=== PATIENT | male | born 1995 | race Caucasian/White ===

== ENCOUNTER → 2019-07-20 14:13 | Outpatient (CLI) | payer OTHER, SELFPAY ==
--- NOTE | 2019-07-20 14:16 | MR_ITS ---
PROCEDURE: MR ANKLE RT WO/W CON CLINICAL INDICATION: peroneal tendon injury Lateral ankle pain following injury, sprain of the anterior talofibular ligament, injury of the peroneal tendon, sprain of deltoid ligament, acute right ankle pain COMPARISON: XR ANKLE RT MIN 3V from 07/07/2019 TECHNIQUE: Routine multiplanar multi echo sequences are performed without and with gadolinium enhancement. FINDINGS: Anterior posterior tibial fibular ligaments are unremarkable. The ATFL shows increased signal intensity laterally consistent with sprain or partial tear. The PT FL appears intact although there is some fluid signal at this region. The extensor tendons and the Achilles tendon has an unremarkable appearance. Small amount of soft tissue edema is present adjacent to the distal fibula and lateral malleolar region. There is some heterogeneous signal intensity present within the peroneal brevis tendon best seen on axial image series 3, image 18 consistent with either a partial tear or sprain. Peroneal longus tendon has an unremarkable appearance. There is a small amount of fluid within the posterior tibialis tendon sheath at the level of the medial malleolus consistent with mild tenosynovitis. Small amount fluid is present along the posterior aspect of the talocalcaneal joint. There is some bone marrow edema within the medial and posterior aspect of the talus fluid is also present along the posterior talofibular ligament region and could reflect a partial tear or sprain. There is a small amount of bone marrow edema within the anterior and distal aspect of the calcaneus and at the anterior and inferior aspect of the talus suggesting bone bruises at these areas. Mild edema is also present within the medial aspect of the cuboid. No enhancing lesions are evident. Fibers of the spring lymph ligament are demonstrated. There is some fluid signal at this area which could be related to sprain or even partial tear IMPRESSION: 1. Partial tear versus sprain of the ATFL. There is some fluid noted at the PT FL area and could be related to sprain or partial tear. 2. Partial tear versus sprain of the perineal brevis tendon just distal to the lateral malleolar tip 3. Sprain versus partial tear of the spring ligament 4. Bone bruises of the calcaneus, talus, and cuboid Dictated by: Shantanu Luu MD 07/21/2019 16:06 Electronically signed by Shantanu Luu MD in [place] 07/21/2019 16:06
--- NOTE | 2019-07-20 14:23 | XR_ITS ---
PROCEDURE: XR ORBIT BILATERAL MIN 4V CLINICAL INDICATION: RULE OUT METAL FOREIGN BODY FOR MRI COMPARISON: No exams were available for comparison FINDINGS: No radiopaque foreign body apparent IMPRESSION: Negative orbits Dictated by: Shantanu Luu MD 07/20/2019 15:04 Electronically signed by Shantanu Luu MD in [place] 07/20/2019 15:04
--- NOTE | 2019-07-20 15:47 | HMH.ITSHM ---
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 []MELOXICAM
== END ==
PROVIDERS: PCP Family Medicine; Visit Provider Podiatrist
DX: S86.301A Unspecified injury of muscle(s) and tendon(s) of peroneal muscle group at lower leg level, right leg, initial encounter (principal); S86.311A Strain of muscle(s) and tendon(s) of peroneal muscle group at lower leg level, right leg, initial encounter; H05.53 Retained (old) foreign body following penetrating wound of bilateral orbits
CPT/HCPCS: 70200; 73723; A9576

== ENCOUNTER → 2019-07-27 13:28 | Outpatient (CLI) | payer OTHER, SELFPAY ==
--- NOTE | 2019-07-27 14:01 | XR_ITS ---
PROCEDURE: XR CHEST 2V CLINICAL HISTORY: TOBACCO USE,ASTHMA Tobacco use COMPARISON: CXR CHEST(2 VIEWS-NOT PORTABLE) from 02/11/2016 FINDINGS: The cardiomediastinal silhouette and pulmonary vascularity are within normal limits. The lungs are clear without infiltrates, suspicious nodules, or pleural effusions. No acute bony abnormalities. IMPRESSION: No acute findings. Dictated by: Shantanu Luu MD 07/27/2019 18:08 Electronically signed by Shantanu Luu MD in [place] 07/27/2019 18:08
[2019-07-27 14:03] LABS: Basophils % 0.4 % (0.1-2.0); Eosinophils # 0.1 K/mm3 (0.0-0.4); Hemoglobin 16.8 g/dL (14.1-18.0); Lymphocytes # 1.6 K/mm3 (0.7-4.5); Mean Corpuscular HGB Conc 34.3 g/dL (31.8-35.4); Mean Corpuscular Hemoglobin 31.9 pg (27.0-31.2); Mean Corpuscular Volume 93.2 fl (80-94); Mean Platelet Volume 8.6 fl (7.4-10.4); Monocytes # 0.3 K/mm3 (0.1-1.0); Monocytes % 5.1 % (1.7-9.3); Neutrophils # 4.6 K/mm3 (1.8-7.8); Neutrophils % 69.5 % (37.0-80.0); Platelet Count 261 K/mm3 (142-424); Red Blood Count 5.26 M/mm3 (4.60-6.20); Red Cell Distribution Width 12.4 % (11.5-17.5); White Blood Count 6.6 K/mm3 (4.8-10.8)
--- NOTE | 2019-07-27 14:17 | ECG_ITS ---
APPROVED REPORT Exam: Resting ECG HR:72 bpm ECG Measurements Heart Rate 72 AXES MD 164 P 46 QRSd 92 QRS 61 QT 368 T 16 QTc 402 <Conclusion> Normal sinus rhythm with sinus arrhythmia Normal ECG Electronically signed by : Delon Abbott, 07/28/2019 12:15:02
[2019-07-27 15:55] LABS: Anion Gap 12.6 mEq/L (5-15); Blood Urea Nitrogen 8 mg/dL (7-18); Calcium 9.2 mg/dL (8.5-10.1); Carbon Dioxide 28 mmol/L (21.0-32.0); Chloride 102 mmol/L (98-107); Creatinine,Serum 1.07 mg/dL (0.70-1.30); Estimated Glomerular Filt Rate 85 ml/min (>60); GFR (African American) 103 ML/MIN (>60); Glucose 84 mg/dL (74-106); Potassium 3.6 mmoL/L (3.5-5.1); Sodium 139 mmol/L (136-145)
[2019-08-10 09:32] LABS: Nicotine 16.4
== END ==
PROVIDERS: PCP Family Medicine; Visit Provider Podiatrist
DX: Z01.818 Encounter for other preprocedural examination (principal); S86.311D Strain of muscle(s) and tendon(s) of peroneal muscle group at lower leg level, right leg, subsequent encounter; S86.301D Unspecified injury of muscle(s) and tendon(s) of peroneal muscle group at lower leg level, right leg, subsequent encounter
CPT/HCPCS: 36415; 71046; 80048; 80323; 85025; 93005

== ENCOUNTER → 2019-09-03 16:28 | Outpatient (CLI) | payer OTHER, SELFPAY ==
--- NOTE | 2019-09-03 16:32 | XR_ITS ---
PROCEDURE: XR FOOT WT BEARING RT 3V CLINICAL INDICATION: postoperative pain COMPARISON: XR FOOT RT MIN 3V from 07/07/2019 FINDINGS: No fracture or dislocation. No lytic or blastic change. There is normal mineralization. The joint spaces are well-preserved. No significant degenerative/arthritic changes. No erosive changes evident. Other findings:2 anchor screws are present at the lateral malleolar region. IMPRESSION: No acute findings. Dictated by: Shantanu Luu MD 09/03/2019 19:19 Electronically signed by Shantanu Luu MD in [place] 09/03/2019 19:19
--- NOTE | 2019-09-03 16:32 | XR_ITS ---
PROCEDURE: XR ANKLE WT BEARING RT MIN 3V CLINICAL INDICATION: postoperative pain COMPARISON: XR ANKLE RT MIN 3V from 07/07/2019 XR ANKLE RT 2V from 08/10/2019 FINDINGS: There are 2 small anchor screws within the distal aspect of the fibula at the lateral malleolar region. No fracture or dislocation. Ankle mortise is preserved. IMPRESSION: Postsurgical change, no acute finding Dictated by: Shantanu Luu MD 09/03/2019 19:18 Electronically signed by Shantanu Luu MD in [place] 09/03/2019 19:18
== END ==
PROVIDERS: PCP Family Medicine; Visit Provider Podiatrist
DX: M25.571 Pain in right ankle and joints of right foot (principal); M79.671 Pain in right foot
CPT/HCPCS: 73610; 73630

== ENCOUNTER → 2019-09-06 11:13 | Outpatient (CLI) | payer OTHER, SELFPAY ==
--- NOTE | 2019-09-06 11:21 | CA_ITS ---
APPROVED REPORT Right Lower Extremity Venous Study for DVT. Angiography Technologist: LUCERO Indications Lower Extremity Pain: Right Risk Factors Trauma Patient tore multiple tendons in the right foot and ankle. States he's having pain and edema near injury sight. Vein Imaging CFV (R): compressive, spontaneous, phasic, augmentation FEM (R): compressive, spontaneous, phasic, augmentation POP (R): compressive, spontaneous, phasic, augmentation PTV (R): Compressible GSV (R): Compressible SSV (R): Compressible Peroneals (R):Compressible GAS (R): Compressible Findings No evidence of DVT or superficial thrombophlebitis in the veins scanned of the right lower extremity. Conclusion No evidence of DVT or superficial thrombophlebitis in the veins scanned of the right lower extremity. Electronically signed by : Shantanu Luu MD 09/07/2019 17:23:46
== END ==
PROVIDERS: PCP Family Medicine; Visit Provider Podiatrist
DX: M79.661 Pain in right lower leg (principal)
CPT/HCPCS: 93971

== ENCOUNTER → 2019-09-24 08:48 | Outpatient (POV) | payer OTHER, SELFPAY ==
[2019-09-24 09:05] VITALS: BP 139/89; PULSE 97; RESP 18; O2SAT 99; BMI 32.3
--- NOTE | 2019-09-24 14:41 | HMH.PMCON ---
Assessment and Plan (1) CRPS type II Current visit: Yes Status: Chronic Qualifiers: Complex regional pain syndrome affected site: lower extremity Laterality: right Qualified Code(s): G57.71 - Causalgia of right lower limb Category: Medical Code(s): G56.40 - Causalgia of unspecified upper limb - Assessment and plan all Dx Assessment and Plan for all problems:: We will set the patient up for right L4-L5 sympathetic nerve block. We will set him up for physical therapy right after the injection. I have confirmed with Dr. Gutierrez that this is appropriate he can begin physical therapy. Patient will also start Lyrica 75 mg 1 p.o. up to 3 times daily. He will start with 1 pill at night and progress to 3 times a day as tolerated. Patient and I had a long discussion in regards to continuing his ibuprofen and decreasing his opioid medication. He agrees. We will see the patient back in 1 week reassess and do any titration to the Lyrica as necessary. Dr. Barker has reviewed this note and agrees with this plan of care. This note was dictated using voice recognition software and may contain errors or omissions HPI - Data of Consult Consult date: 09/24/19 Requesting Physician: Lyn De Leon APRN Primary Care Provider: Kristine Jovel MD - Consult Narrative Reason for consult: CRPS right foot History of present illness: Mr. Santo is a 23 year old male who presents today for consultation in regards to his right foot pain. Patient had an accident back in June. He subsequently had surgery in August. Patient has had difficulty with pain in his foot since then. He has color changes, swelling, temperature changes to the affected foot. Patient has tried medications including Percocet, gabapentin and some anti-inflammatories. Patient states that ibuprofen is much more beneficial than the oxycodone. Patient had a long discussion in regards to the management of CRPS. Patient is open to any therapy that will be beneficial. He rates his pain today a 8 out of 10 and states it has a quality of aching, burning, electrical in nature CC: Lyn De Leon APRN [facility] History I have reviewed the patient's past medical history: Yes Medical History: Reports:: Asthma Denies:: Cancer, Diabetes Mellitus Type 1, Diabetes Mellitus Type 2, Internal Pacemaker, MRSA, Seizures *Have you ever received a pneumonia vaccine?: Yes *Have you received a flu vaccine this season?: Yes Other Medical History: Denies: Blood Transfusion Reaction Laterality Cases: Bilateral: Tonsillectomy Other Surgeries: Yes: Other. No: Pacemaker Amputation: No Fractures: Yes - *Social History Educational Level: Completed High School Smoking Status: Current every day smoker Tobacco Type: cigarettes # Packs/Day (cigarettes): 1 Alcohol Intake: never Alcohol Intake Frequency:: holidays/special occasions only Substance Use Type: denies use *Occupational Status:: employed Housing: house Household Members: family *Travel in the last 8 weeks: None Family Hx:: Diabetes, Cancer Review of Systems - Review of Systems ROS General: no recent weight change, no fever, no sleep disturbances Respiratory: no cough, no shortness of air, no recurring pulmonary infections Cardiovascular/Peripheral Vascular: No chest pain, No palpitations, no edema, no shortness of breath. Gastrointestinal: no new onset incontinence, normal bowel movements reported Genitourinary: no new onset incontinence Musculoskeletal: Right foot pain Psychiatric: normal mood/ affect Neurological: Numbness tingling burning, temperature changes, color changes right lower extremity, [denies new onset balance issues] Meds Home Medications Medication Instructions Recorded Confirmed Type ibuprofen 800 mg tablet 800 mg PO BID #60 tab 07/25/19 09/20/19 Rx ondansetron HCl 4 mg tablet 4 mg PO Q6H PRN #30 tab 07/25/19 09/20/19 Rx cyclobenzaprine 5 mg tablet 5 mg PO BID PRN #30 tab 08/09
--- NOTE | 2019-09-24 14:45 | P.CONS_ITS ---
Assessment and Plan (1) CRPS type II Current visit: Yes Status: Chronic Qualifiers: Complex regional pain syndrome affected site: lower extremity Laterality: right Qualified Code(s): G57.71 - Causalgia of right lower limb Category: Medical Code(s): G56.40 - Causalgia of unspecified upper limb - Assessment and plan all Dx Assessment and Plan for all problems:: We will set the patient up for right L4-L5 sympathetic nerve block. We will set him up for physical therapy right after the injection. I have confirmed with Rocio Gutierrez that this is appropriate he can begin physical therapy. Patient will also start Lyrica 75 mg 1 p.o. up to 3 times daily. He will start with 1 pill at night and progress to 3 times a day as tolerated. Patient and I had a long discussion in regards to continuing his ibuprofen and decreasing his opioid medication. He agrees. We will see the patient back in 1 week reassess and do any titration to the Lyrica as necessary. Dr. Barker has reviewed this note and agrees with this plan of care. This note was dictated using voice recognition software and may contain errors or omissions HPI - Data of Consult Consult date: 09/24/19 Requesting Physician: Lyn De Leon APRN Primary Care Provider: Kristine Jovel MD - Consult Narrative Reason for consult: CRPS right foot History of present illness: Mr. Santo is a 23 year old male who presents today for consultation in regards to his right foot pain. Patient had an accident back in June. He subsequently had surgery in August. Patient has had difficulty with pain in his foot since then. He has color changes, swelling, temperature changes to the affected foot. Patient has tried medications including Percocet, gabapentin and some anti-inflammatories. Patient states that ibuprofen is much more beneficial than the oxycodone. Patient had a long discussion in regards to the management of CRPS. Patient is open to any therapy that will be beneficial. He rates his pain today a 8 out of 10 and states it has a quality of aching, burning, electrical in nature CC: Lyn De Leon APRN [facility] History I have reviewed the patient's past medical history: Yes Medical History: Reports:: Asthma Denies:: Cancer, Diabetes Mellitus Type 1, Diabetes Mellitus Type 2, Internal Pacemaker, MRSA, Seizures *Have you ever received a pneumonia vaccine?: Yes *Have you received a flu vaccine this season?: Yes Other Medical History: Denies: Blood Transfusion Reaction Laterality Cases: Bilateral: Tonsillectomy Other Surgeries: Yes: Other. No: Pacemaker Amputation: No Fractures: Yes - *Social History Educational Level: Completed High School Smoking Status: Current every day smoker Tobacco Type: cigarettes # Packs/Day (cigarettes): 1 Alcohol Intake: never Alcohol Intake Frequency:: holidays/special occasions only Substance Use Type: denies use *Occupational Status:: employed Housing: house Household Members: family *Travel in the last 8 weeks: None Family Hx:: Diabetes, Cancer Review of Systems - Review of Systems ROS General: no recent weight change, no fever, no sleep disturbances Respiratory: no cough, no shortness of air, no recurring pulmonary infections Cardiovascular/Peripheral Vascular: No chest pain, No palpitations, no edema, no shortness of breath. Gastrointestinal: no new onset incontinence, normal bowel movements reported Genitourinary: no new onset incontinence Musculoskeletal: Right foot pain Psychiatric: normal mood/ affect Neurological: Numbness tingling
== END ==
PROVIDERS: PCP Family Medicine; Visit Provider Clinical Nurse Specialist Family Health
DX: G57.71 Causalgia of right lower limb (principal)
CPT/HCPCS: 99202

== ENCOUNTER → 2019-10-02 10:19 | Outpatient (POV) | payer OTHER, SELFPAY ==
[2019-10-02 10:42] VITALS: BP 146/93; PULSE 100; RESP 18; O2SAT 98; BMI 32.3
--- NOTE | 2019-10-02 10:47 | HMH.PAINSOAP ---
[facility] Pain Management SOAP Note Subjective:: Patient is a pleasant 23-year-old white male who presents today for follow-up after initial visit. Patient has CRPS right foot. Patient has extreme tenderness in the area with color changes and temperature changes. Patient started Lyrica 75 mg 1 p.o. 3 times daily. Patient states that it does beneficial however he is not getting full relief. Patient rates his pain a 7 out of 10 and states that he is not having any side effects to his Lyrica. [facility] #[id number] reviewed appropriate. We will increase his Lyrica to 150 mg 1 p.o. twice daily. We will also schedule him for a right sided sympathetic nerve block and following PT. I did speak with Dr. Gutierrez she states that the patient can undergo her recommended PT therapy. ROS General: no recent weight change, no fever, no sleep disturbances Respiratory: no cough, no shortness of air, no recurring pulmonary infections Cardiovascular/Peripheral Vascular: No chest pain, No palpitations, no edema, no shortness of breath. Gastrointestinal: no new onset incontinence, normal bowel movements reported Genitourinary: no new onset incontinence Musculoskeletal: Right foot pain Psychiatric: normal mood/ affect, , Neurological: Numbness tingling right foot, [denies new onset balance issues] Objective:: Physical Exam General: Alert and oriented x3, no acute distress, pleasant and cooperative, [on room air] Lungs: Resps E/U, Symmetrical chest expansion, Eyes: PERRL Musculoskeletal: Range of motion right foot guarded secondary to pain, deep tendon reflexes normal, strength in upper and lower extremities [5/5], [abnormal gait noted] 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 Will increase his Lyrica 150 mg 1 p.o. twice daily. Patient's been instructed to call the office if he has any issues prior to his next appointment. Patient is not on any anticoagulation therapy. I will follow-up with the patient after this reassess his symptoms at that time Dr. Barker has reviewed this note and agrees with this plan of care. This note was dictated using voice recognition software and may contain errors or omissions [facility] History I have reviewed the patient's past medical history: Yes Medical History: Reports:: Asthma Denies:: Cancer, Diabetes Mellitus Type 1, Diabetes Mellitus Type 2, Internal Pacemaker, MRSA, Seizures *Have you ever received a pneumonia vaccine?: Yes *Have you received a flu vaccine this season?: Yes Other Medical History: Denies: Blood Transfusion Reaction Laterality Cases: Bilateral: Tonsillectomy Other Surgeries: Yes: Other. No: Pacemaker Amputation: No Fractures: Yes - *Social History Smoking Status: Current every day smoker Tobacco Type: cigarettes # Packs/Day (cigarettes): 1 Alcohol Intake: never Alcohol Intake Frequency:: holidays/special occasions only Substance Use Type: denies use *Occupational Status:: other Housing: house Household Members: family *Travel in the last 8 weeks: None Family Hx:: Diabetes, Cancer
--- NOTE | 2019-10-02 10:50 | P.CONS_ITS ---
[facility] Pain Management SOAP Note Subjective:: Patient is a pleasant 23-year-old white male who presents today for follow-up after initial visit. Patient has CRPS right foot. Patient has extreme tenderness in the area with color changes and temperature changes. Patient started Lyrica 75 mg 1 p.o. 3 times daily. Patient states that it does bene ficial however he is not getting full relief. Patient rates his pain a 7 out of 10 and states that he is not having any side effects to his Lyrica. [facility] #[id number] reviewed appropriate. We will increase his Lyrica to 150 mg 1 p.o. twice daily. We will also schedule him for a right sided sympathetic nerve block and following PT. I did speak with Dr. Gutierrez she states that the patient can undergo her recommended PT therapy. ROS General: no recent weight change, no fever, no sleep disturbances Respiratory: no cough, no shortness of air, no recurring pulmonary infections Cardiovascular/Peripheral Vascular: No chest pain, No palpitations, no edema, no shortness of breath. Gastrointestinal: no new onset incontinence, normal bowel movements reported Genitourinary: no new onset incontinence Musculoskeletal: Right foot pain Psychiatric: normal mood/ affect, , Neurological: Numbness tingling right foot, [denies new onset balance issues] Objective:: Physical Exam General: Alert and oriented x3, no acute distress, pleasant and cooperative, [on room air] Lungs: Resps E/U, Symmetrical chest expansion, Eyes: PERRL Musculoskeletal: Range of motion right foot guarded secondary to pain, deep tendon reflexes normal, strength in upper and lower extremities [5/5], [abnormal gait noted] 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 Will increase his Lyrica 150 mg 1 p.o. twice daily. Patient's been instructed to call the office if he has any issues prior to his next appointment. Patient is not on any anticoagulation therapy. I will follow-up with the patient after this reassess his symptoms at that time Dr. Barker has reviewed this note and agrees with this plan of care. This note was dictated using voice recognition software and may contain errors or omissions [facility] History I have reviewed the patient's past medical history: Yes Medical History: Reports:: Asthma Denies:: Cancer, Diabetes Mellitus Type 1, Diabetes Mellitus Type 2, Internal Pacemaker, MRSA, Seizures *Have you ever received a pneumonia vaccine?: Yes *Have you received a flu vaccine this season?: Yes Other Medical History: Denies: Blood Transfusion Reaction Laterality Cases: Bilateral: Tonsillectomy Other Surgeries: Yes: Other. No: Pacemaker Amputation: No Fractures: Yes - *Social History Smoking Status: Current every day smoker Tobacco Type: cigarettes # Packs/Day (cigarettes): 1 Alcohol Intake: never Alcohol Intake Frequency:: holidays/special occasions only Substance Use Type: denies use *Occupational Status:: other Housing: house Household Members: family *Travel in the last 8 weeks: None Family Hx:: Diabetes, Cancer
== END ==
PROVIDERS: PCP Family Medicine; Visit Provider Clinical Nurse Specialist Family Health
DX: G57.71 Causalgia of right lower limb (principal)
CPT/HCPCS: 99212

== ENCOUNTER → 2019-11-29 14:39 | Outpatient (CLI) | payer OTHER, SELFPAY ==
--- NOTE | 2019-11-29 14:42 | XR_ITS ---
PROCEDURE: XR ANKLE WT BEARING RT MIN 3V CLINICAL INDICATION: status postop surgery COMPARISON: XR ANKLE RT MIN 3V from 07/07/2019 XR ANKLE RT 2V from 08/10/2019 XR ANKLE RT MIN 3V from 08/10/2019 FINDINGS: There has been interval removal of the splint device. Metallic pins are again seen in the fibula. There is anatomical positioning of the bony elements. There is marked demineralization likely from disuse. No acute fracture or dislocation is apparent IMPRESSION: Marked demineralization. Postsurgical changes in fibula with no acute bone pathology. Dictated by: Rob Sullivan 11/29/2019 15:15 Electronically signed by Rob Sullivan in [place] 11/29/2019 15:15
--- NOTE | 2019-11-29 14:42 | XR_ITS ---
PROCEDURE: XR FOOT WT BEARING RT 3V CLINICAL INDICATION: status postop surgery COMPARISON: XR FOOT RT MIN 3V from 07/07/2019 XR FOOT WT BEARING RT 3V from 09/03/2019 FINDINGS: No fracture or dislocation. No lytic or blastic change. There is marked demineralization. The joint spaces are well-preserved. No significant degenerative/arthritic changes. No erosive changes evident. Other findings:None. IMPRESSION: No acute findings. Dictated by: Rob Sullivan 11/29/2019 15:17 Electronically signed by Rob Sullivan in [place] 11/29/2019 15:17
== END ==
PROVIDERS: PCP Family Medicine; Visit Provider Podiatrist
DX: S99.911A Unspecified injury of right ankle, initial encounter (principal); Z98.890 Other specified postprocedural states
CPT/HCPCS: 73610; 73630

== ENCOUNTER 2020-01-25 13:00 | Outpatient (RCR) | payer OTHER, SELFPAY ==
--- NOTE | 2019-10-10 11:24 | HMH.PTOPEV ---
PT Outpatient Evaluation Rehab PT Outpatient Evaluation Start: 10/10/19 10:44 Freq: Status: Active Protocol: Document 10/10/19 10:46 ELAINA (Rec: 10/10/19 11:24 ELAINA [id number]) Electronically Signed By Reinier Barber, PT 10/10/19 10:46 Outpatient Therapy Subjective History Subjective History Pt presents s/p R ankle sx., R peroneal(s) repair, ATFL repair, deltoid repair, sx. date 08/10/19. Pt reports initial injury on 07/06/19 while at work, jumped out of truck and severely 'rolled' R ankle by stepping/landing w/R LE in [place]/hole. Pt reports severe R ankle pain since sx., and has just (30min ago, 10/10/19) received a nn block w/[facility] pain mngt for CRPS in R ankle. Pt reports N&T in BLE's currently, and reports global severe R ankle pain/ burning/pounding before injection. Chief Complaint Pain,Stiff,Swelling, Paresthesia,Weakness Symptom Type Ache,Throb,Sharp,Dull,Stabbing ,Burning,Numbness,Tingling, Shooting,Other Symptoms Relieved By Rest/Positioning,Ice Symptoms Aggravated By Standing,Physical Activity, Walking Prior Functional Limitations Standing,Walking,Stairs Current Functional Limitations Standing,Walking,Stairs Symptom Description Constant and Continuous Level of pain today (0-10) 8 Pain scale - at its best (0-10) 8 Pain scale - at its worst (0-10) 8 Ankle/Foot Eval Gait Observation General Gait Pattern Observation Decrease Weight Bear (R) Palpation Tenderness right Ankle/Foot Palpation Findings Tenderness Ankle/Foot Palpation Overall Comment 2-3/4 globally ATF TTP positive PTF TTP positive CF TTP positive Deltoid ligament TTP positive ROM Ankle/Foot Dorsiflexion w/Knee Extended +15 Active Range Motion (degrees) Ankle/Foot Plantar Flexion Active Range 15-50 of Motion (degrees) Ankle/Foot Eversion Active Range of 0-5 Motion (degrees) Ankle/Foot Inversion Active Range of 0-20 Motion (degrees) Ankle/Foot ROM Limitations Soft Tissue Tightness,Pain MMT Ankle Dorsiflexion Strength Grade 3+ Fair+ Ankle Plantarflexion Strength Grade 4- Good- F
--- NOTE | 2019-11-08 14:10 | HMH.RHREAS ---
Rehab Reassessment Rehab OP Re-assessment Start: 11/08/19 13:16 Freq: Status: Active Protocol: Document 11/08/19 13:17 ELAINA (Rec: 11/08/19 14:10 ELAINA [id number]) Electronically Signed By Reinier Barber, PT 11/08/19 13:17 Rehab Re-assessment Subjective Subjective PT REPORTS 3-4/10 R ANKLE/FOOT PAIN ON VAS W/ACTIVITY, AND FEELS 70% BETTER OVERALL SINCE I EVAL Objective Objective Notes AROM: R ANKLE DF 0, PF 0-35, INV 0-30, 0-10 MMT: R ANKLE DF 4/5, PF 4+/5, INV 4/5, EVR 4-/5 TTP: R PERONEAL LONGUS MM BELLY 2/4-TrP FIG 8: R 65CM Assessment Progress Assessment Progressing as Expected Assessment Notes PT W/IMPROVED AROM, STRENGTH, AND TTP Patient goals met STG'S 05/14 LTG'S 12/17 Goals Not Met STG'S 11/14, LTG'S 06/16 Plan Plan PT TO CONT. W/SKILLED P.T. TO MAKE FURTHER IMPROVEMENTS IN AROM, STRENGTH, AND TTP TO ALLOW FOR OPTIMAL FUNCTION Frequency of Therapy 2-3 X/WK Duration of therapy 3-4 WKS Time and Billing Re-Eval Time 15 Re-Eval Billing Units 1 PHYSICIAN CERTIFICATION: I certify the specified therapy services for Dale Santo are required, authorized, and reviewed every 30 days.
--- NOTE | 2019-12-07 15:49 | HMH.RHREAS ---
Rehab Reassessment Rehab OP Re-assessment Start: 11/08/19 13:16 Freq: Status: Active Protocol: Document 12/07/19 15:20 ELAINA (Rec: 12/07/19 15:31 CHALINOCELINEDIMITRY [id number]) Electronically Signed By Reinier Barber, PT 12/07/19 15:20 Rehab Re-assessment Subjective Subjective PT REPORTS 0/10 R ANKLE ON VAS , AND FEELS 80% BETTER OVERALL SINCE I EVAL Objective Objective Notes AROM: R ANKLE DF 0, PF 0-50, INV 0-35, EVR 0-18 MMT: R ANKLE DF 4+/5, PF 4+/5, INV 4/5, EVR 4/5 TTP: R PERONEAL LONGUS MM BELLY 1/4-TrP FIG 8: R 65CM [ End ] Assessment Progress Assessment Progressing as Expected Assessment Notes PT W/IMPROVED R ANKLE ROM, STRENGTH, AND TTP Patient goals met STG'S 06/14 LTG'S 03/16 Goals Not Met LTG'S 03/16 Plan Plan PT TO CONT. W/SKILLED P.T. TO MAKE FURTHER IMPROVEMENTS IN AROM, STRENGTH, AND TTP TO ALLOW FOR OPTIMAL FUNCTION Frequency of Therapy 1-2X/WK Duration of therapy 3-4 WKS Time and Billing Re-Eval Time 15 Re-Eval Billing Units 1 PHYSICIAN CERTIFICATION: I certify the specified therapy services for Dale Santo are required, authorized, and reviewed every 30 days.
--- NOTE | 2020-01-11 13:13 | HMH.RHREAS ---
Rehab Reassessment Rehab OP Re-assessment Start: 11/08/19 13:16 Freq: Status: Active Protocol: Document 01/11/20 12:49 ELAINA (Rec: 01/11/20 13:13 ELAINA [id number]) Electronically Signed By Reinier Barber, PT 01/11/20 12:49 Rehab Re-assessment Subjective Subjective PT REPORTS 0/10 R ANKLE ON VAS , AND FEELS 90-95% BETTER OVERALL SINCE I EVAL Objective Objective Notes AROM: R ANKLE DF 0-5, PF 0-50, INV 0-35, EVR 0-18 MMT: R ANKLE DF 5/5, PF 5/5, INV 4+/5, EVR 4+/5 TTP: R PERONEAL LONGUS MM BELLY 1/4-TrP FIG 8: R 56CM Assessment Progress Assessment Progressing as Expected Assessment Notes PT W/IMPROVED EDEMA, STRENGTH, TTP, ROM Patient goals met STG'S 06/14 LTG'S 06/16 Goals Not Met LTG'S 12/17 Plan Plan PT TO CONT. W/SKILLED P.T. TO MAKE FURTHER IMPROVEMENTS IN AROM, STRENGTH, AND TTP TO ALLOW FOR OPTIMAL FUNCTION Frequency of Therapy 1-2X/WK Duration of therapy 2-4WKS Time and Billing Re-Eval Time 15 Re-Eval Billing Units 1 PHYSICIAN CERTIFICATION: I certify the specified therapy services for Dale Santo are required, authorized, and reviewed every 30 days.
== END 2020-01-25 14:20 | disposition home or self-care (01) ==
LOC: PT 13:00
PROVIDERS: Visit Provider Clinical Nurse Specialist Family Health
DX: G90.521 Complex regional pain syndrome I of right lower limb (principal); Z98.890 Other specified postprocedural states; Y99.0 Civilian activity done for income or pay
CPT/HCPCS: 20560; 97010; 97014; 97035; 97110; 97112; 97140; 97163; 97164; G0283

== ENCOUNTER 2021-05-17 11:05 | Emergency (ER) | payer SELFPAY ==
[2021-05-17 11:30] VITALS: BP 119/63; PULSE 64; RESP 21; TEMP 36.8; O2SAT 98; BMI 35.2
[2021-05-17 12:12] LABS: UTC Strep Screen (Rapid) Positive (Negative)
--- NOTE | 2021-05-17 12:29 | HMH.EDUTC ---
[facility] [place] Clinical Impression: Strep throat Disposition: Home, Self-Care Condition on Discharge: Good Instructions: Strep Throat, DI for Strep Throat, Amoxicillin Additional Instructions: *Nasal saline and bulb syringe or nose georgiana to remove nasal drainage and help with nasal congestion. Hard to eat, drink, or sleep with nasal congestion so important to keep nose cleaned out. *Monitor Temp, Over the counter Motrin or Tylenol as directed/as needed Tylenol every 4 hours and Motrin every 6 hours (as long as your family doctor has told you that you can take it) for fever or pain. and straight to ER if unable to lower temp less than 101.0 after medication given *Warm salt water gargles may help to soothe the throat *Throat Lozenges *Warm fluids like tea with honey may help to soothe the throat *Sleep elevated *Humidifier/Vaporizer Take medication as prescribed Follow up IMMEDIATELY for new or worsening symptoms or no Noticeable improvement over the next 48-72 hours. 911 for difficulty breathing or swallowing Prescriptions: Amoxicillin [Amoxicillin 500mg Cap] 500 mg PO TID #30 cap Transmission Status: Pending to [id number] Referrals: Kristine Jovel MD [Primary Care Provider] - As needed Time of Disposition: 12:31 Medical Decision Making - Allen Inquiry Pt receiving controlled substance: No Allen was queried for this patient: No Vital Signs: 05/17/21 11:30 Temperature 98.2 F Temperature Source Oral Pulse Rate [Right Brachial] 64 Respiratory Rate 21 Blood Pressure [Right Arm] 119/63 Blood Pressure Mean [Right Arm] 81 Blood Pressure Source [Right Arm] Automatic Cuff Blood Pressure Position [Right Arm] Sitting 02 Sat by Pulse Oximetry 98 Oxygen Delivery Method Room Air - Lab Data Lab results reviewed: Yes: I reviewed the patient's lab results. Lab Results 05/17/21 11:35: Strep Scn Rapid Clinic Positive A [facility] [place] HPI - General Stated complaint: earache, sore throat, drainage Time Seen by Provider: 05/17/21 12:29 Mode of Arrival: Ambulatory Source of Information: Patient Limitations: No Limitations Description of Symptoms (Recalled from Triage Doc. by RN): PATIENT C/O EAR PAIN, DRAINAGE, AND SORE THROAT X 3 DAYS HEENT Symptoms (Recalled from RN notes): No Resp Symptoms (Recalled from RN notes): No Skin Symptoms (Recalled from RN notes): No MS Symptoms (Recalled from RN notes): No Functional Status (Recalled from RN notes): WNL - History of Present Illness Provider Complaint: Patient states that he has not felt well for about 3 days States that he has been having pain in both ears sore throat and feeling achy States that he wasnt sure if he could still get strep throat because his tonsils have been removed but daughter and is having similar symptoms - Related Data Previous Rx's Medication Instructions Recorded Amoxicillin [Amoxicillin 500mg 500 mg PO TID #30 cap 05/17/21 Cap] Allergies Allergy/AdvReac Type Severity Reaction Status Date / Time No Known Allergies Allergy Verified 08/12/20 09:35 - Worker's Comp Is this a Worker's Comp case?: No [facility] History - Hepatitis A Screen Drug use history?: No High risk sexual behaviors?: No History of sexually transmitted infection?: No Currently employed?: No Childcare worker?: No Do you have indoor plumbing?: Yes Do you have electricity?: Yes Attestation statement:: This patient has been screened for Hepatitis A risk factors. I have reviewed the patient's past medical history: Yes Medical History: Reports:: Asthma Denies:: Cancer, Diabetes Mellitus Type 1, Diabetes Mellitus Type 2, Internal Pacemaker, MRSA, Seizures Other Medical History: Denies: Blood Transfusion Reaction Laterality Cases: Bilateral: Tonsillectomy, Other Other Surgeries: Yes: Other. No: Pacemaker Amputation: No Fractures: Yes Comment: wisdom teeth, R peroneus brevis, long repair, ATFL repair - Social History Smoki
[2021-05-17 12:30] VITALS: BP 119/63; PULSE 64; RESP 21; TEMP 36.8; O2SAT 98
== END 2021-05-17 12:33 | disposition home or self-care (01) ==
PROVIDERS: Emergency Provider Nurse Practitioner; PCP Family Medicine
DX: J02.0 Streptococcal pharyngitis (principal); J45.909 Unspecified asthma, uncomplicated
CPT/HCPCS: 87880; 99202; G0463

== ENCOUNTER 2021-06-06 10:59 | Emergency (ER) | payer SELFPAY ==
[2021-06-06 11:00] VITALS: BP 120/77; PULSE 81; RESP 16; TEMP 36.8; O2SAT 98; BMI 33.7
--- NOTE | 2021-06-06 11:07 | XR_ITS ---
PROCEDURE INFORMATION: Exam: XR Soft Tissue Neck Exam date and time: 06/06/2021 11:07 AM Age: 25 years old Clinical indication: Other: F/o in throat TECHNIQUE: Imaging protocol: XR of the soft tissues of the neck. COMPARISON: CR XR CHEST 2V 07/27/2019 2:02 PM FINDINGS: Airway: Normal. No abnormal narrowing. Soft tissues: Normal. Normal epiglottis. Bones/joints: Unremarkable. IMPRESSION: No acute findings. Recommend CT soft tissue neck if clinically indicated
--- NOTE | 2021-06-06 11:07 | XR_ITS ---
PROCEDURE INFORMATION: Exam: XR Chest Exam date and time: 06/06/2021 11:07 AM Age: 25 years old Clinical indication: Other: F/o in throat TECHNIQUE: Imaging protocol: XR of the chest. Views: 1 view. COMPARISON: CR XR CHEST 2V 07/27/2019 2:02 PM FINDINGS: Lungs: Unremarkable. No consolidation. Pleural spaces: Unremarkable. No pleural effusion. No pneumothorax. Heart/Mediastinum: Unremarkable. No cardiomegaly. Bones/joints: Unremarkable. IMPRESSION: No acute findings.
--- NOTE | 2021-06-06 12:03 | HMH.EDGENADL ---
ED Disposition Clinical Impression: Cough Disposition: Home, Self-Care Condition on Discharge: Good Instructions: DI for Skin Abscess Referrals: Kristine Jovel MD [Primary Care Provider] - Time of Disposition: 12:07 - Critical Care Critical Care Time: No Attestation: On 06/06/21, the high probability of a clinically significant, sudden or life threatening deterioration of the following system(s) required my full and direct attention, intervention and personal management. The time I documented below is in addition to time spent performing reported procedures but includes the following listed in this critical care notation. Medical Decision Making - Medical Records Medical records reviewed: Yes: I reviewed the patient's medical records. - Allen Inquiry Pt receiving controlled substance: No Vital Signs: 06/06/21 11:00 Temperature 98.2 F Temperature Source Oral Pulse Rate [Radial] 81 Respiratory Rate 16 Blood Pressure [Right Arm] 120/77 Blood Pressure Mean [Right Arm] 91 Blood Pressure Position [Right Arm] Sitting 02 Sat by Pulse Oximetry 98 Oxygen Delivery Method Room Air Orders (Tests/Meds): ORDERS Category Date Time Status CXR --portable [XR chest portable] Stat Exams 06/06/21 11:07 Taken XR soft tissue neck Stat Exams 06/06/21 11:07 Taken - Radiology Data #1 Image(s): Chest Image Reviewed: Yes I reviewed the patient's radiology image Preliminary Findings: Normal/NAD #2 Image(s): Other (Neck, soft tissue) Image Reviewed: Yes I reviewed the patient's radiology image Preliminary Findings: Normal/NAD Medical Decision Narrative: 25yo M evaluated with concern for foreign object to his airway. Soft tissue neck x-ray and chest x-ray are obtained and negative per my wet read. Patient in no acute distress. Lung sounds are clear. O2 sat is greater than 96% on room air. Discussed possibility of aspiration after the patient's episode of emesis today. Encouraged to cough as needed to clear his airway. Patient is appropriate and stable for discharge home. General Adult HPI - General Chief complaint: Skin/Abscess/Foreign Body Stated complaint: f/o in throat Time Seen by Provider: 06/06/21 12:03 Mode of Arrival: Ambulatory Limitations: No Limitations Description of Symptoms (Recalled from ER Triage Doc. by RN): TO ED PER PVT CAR WITH C/O ?FB IN THROAT. STATES 2AM WOKE UP VOMITING STATES AFTER VOMITING HAS FB SENSATION IN THROAT. PT DENIES ANY RECENT VOMITING. PT STATES HE HAS HAD WATER WITHOUT DIFFICULTY. NO DROOLING NOTED. SPEAKING FULL SENTENCES. - History of Present Illness HPI narrative: 25yo M presents to the emergency department secondary to concern for possible foreign object in throat. Patient reports he woke up vomiting at 4:00 in the morning. He believes there is something lodged in his airway following this episode of emesis. He denies fever. Reports his little girl has been sick with GI upset over the past few days. Patient is able to swallow liquids, has not attempted solids. Denies any shortness of breath. - Related Data Previous Rx's Medication Instructions Recorded Amoxicillin [Amoxicillin 500mg 500 mg PO TID #30 cap 05/17/21 Cap] Allergies Allergy/AdvReac Type Severity Reaction Status Date / Time No Known Allergies Allergy Verified 08/12/20 09:35 [facility] History - Hepatitis A Screen Drug use history?: No High risk sexual behaviors?: No History of sexually transmitted infection?: No Currently employed?: No Childcare worker?: No Do you have indoor plumbing?: Yes Do you have electricity?: Yes Attestation statement:: This patient has been screened for Hepatitis A risk factors. I have reviewed the patient's past medical history: Yes Medical History: Reports:: Asthma Denies:: Cancer, Diabetes Mellitus Type 1, Diabetes Mellitus Type 2, Internal Pacemaker, MRSA, Seizures Other Medical History: Denies: Blood Transfusion Reaction
[2021-06-06 12:27] VITALS: BP 121/65; PULSE 78; RESP 16; TEMP 36.6; O2SAT 98
== END 2021-06-06 12:28 | disposition home or self-care (01) ==
PROVIDERS: Emergency Provider Family Medicine; PCP Family Medicine
DX: J45.909 Unspecified asthma, uncomplicated (principal)
CPT/HCPCS: 70360; 71045; 99282

== ENCOUNTER → 2021-09-21 12:59 | Outpatient (CLI) | payer OTHER, SELFPAY ==
--- NOTE | 2021-09-21 13:15 | MR_ITS ---
PROCEDURE: MR SHOULDER RT WO/W CON CLINICAL INDICATION: RIGHT SHOULDER SPRAIN COMPARISON: No exams were available for comparison TECHNIQUE: Routine multiplanar multi echo sequences are performed without gadolinium and with intra-articular gadolinium. Please see arthrogram for technique.. FINDINGS: No evidence of rotator cuff tear. No evidence labral tear. No ligamentous injury apparent. Bicipital tendon is in place. Small amount extravasation of contrast into the pre subscapularis region. No bone bruise. No fracture or dislocation. No muscular abnormalities. No mass IMPRESSION: Negative MRI of the right shoulder without and with intra-articular gadolinium Dictated by: Shantanu Luu MD 09/26/2021 08:40 Shantanu Luu MD in [place] 09/26/2021 08:40
--- NOTE | 2021-09-21 13:58 | IR_ITS ---
PROCEDURE: IR ARTHROGRAM SHOULDER RT CLINICAL INDICATION: SPRAIN OF RT SHOULDER COMPARISON: No exams were available for comparison FINDINGS: Following obtaining informed consent time-out procedure under aseptic conditions and local anesthesia with 1 percent buffered lidocaine, using the anterior approach with a 20 gauge spinal needle, approximately 12 mL a mixture of 5 cc normal saline, 10 cc lidocaine, 5 cc Isovue-300, and 0.1 cc gadolinium was injected into the right shoulder joint. Contrast flowed freely into the joint and sub coracoid and subglenoid recess and bicipital tendon sheath region. The patient tolerated the procedure well without evidence of immediate complication. There is no evidence of abnormal contrast within the sub acromial region that would indicate a rotator cuff tear. Joint capsule appears smooth. No evidence of adhesive capsulitis. Patient within taken to the MRI suite where MR arthrogram images were performed. Please see that report for further detail. IMPRESSION: Unremarkable and uneventful right shoulder arthrogram Dictated by: Shantanu Luu MD 09/22/2021 10:02 Shantanu Luu MD in [place] 09/22/2021 10:02
== END ==
PROVIDERS: PCP Family Medicine; Visit Provider Physical Medicine & Rehabilitation
DX: M25.511 Pain in right shoulder (principal)
CPT/HCPCS: 73040; 73223; Q9967

== ENCOUNTER 2022-07-05 11:28 | Emergency (ER) | payer BC, SELFPAY ==
[2022-07-05 13:30] VITALS: BP 124/77; PULSE 81; RESP 19; TEMP 36.8; O2SAT 99; BMI 34.4
--- NOTE | 2022-07-05 14:01 | EXP.UTC ---
Discharge Plan Disposition Patient Disposition: Home, Self-Care Condition: Good Prescriptions Prescriptions: No Action amoxicillin 500 MG capsule 500 mg PO TID Qty: 30 0RF Referrals Follow up/Referrals: Kristine Jovel MD [Primary Care Provider] - See instructions Activity Restrictions/Add. Instructions Additional Instructions/Restrictions: *Monitor Temp, Over the counter Motrin or Tylenol as directed/as needed Tylenol every 4 hours and Motrin every 6 hours (as long as your family doctor has told you that you can take it) for fever or pain. and straight to ER if unable to lower temp less than 101.0 after medication given *Warm salt water gargles may help to soothe the throat *Throat Lozenges? *Warm fluids like tea with honey may help to soothe the throat? *Sleep elevated *Humidifier/Vaporizer Follow up IMMEDIATELY for new or worsening symptoms or no Noticeable improvement over the next 48-72 hours. 911 for difficulty breathing or swallowing You were tested for today for COVID19 your test result should be back in the next 24-48 hours, you may may check your results on the [facility] Make sure to take your Vitamins Vit. C Vit D and Zinc if you can take them Clinical Impressions Clinical Impression: Exposure to COVID-19 virus Stand Alone Forms Stand Alone Forms: Work/School Release Instructions Patient Instructions: DI for Fever (Symptom) -- Adult, Coronavirus Disease 2019, Preventing the Spread of Coronavirus Discharge Instructions Discharge ED Provider: Guillermina Mancuso [facility] [place] HPI General Stated complaint: Fever, cough, drainage, covid test Mode of Arrival: Ambulatory Source of Information: Patient Limitations: No Limitations Time Seen by Provider: 07/05/22 14:01 Description of Symptoms (Recalled from Triage Doc. by RN): COVID TEST D/T EXPOSURE. C/O FEVER, DRAINAGE, AND COUGH SINCE YESTERDAY HEENT Symptoms (Recalled from RN notes): Yes Resp Symptoms (Recalled from RN notes): Yes Skin Symptoms (Recalled from RN notes): No MS Symptoms (Recalled from RN notes): No Functional Status (Recalled from RN notes): WNL History of Present Illness Provider Complaint: Patient states that child tested positive for COVID over the weekend and he started having symptoms yesterday and took a home test and it was positive but work wanted him to get a PCR States that he has been having runny nose fever and cough Related Data Previous Rx's Medication Instructions Recorded amoxicillin 500 mg capsule 500 mg PO TID #30 caps 05/17/21 Allergies Allergy/AdvReac Type Severity Reaction Status Date / Time No Known Allergies Allergy Verified 08/12/20 09:35 Worker's Comp Is this a Worker's Comp case?: No PFSH PFSH Medical History (Updated 07/05/22 @ 14:11 by Guillermina Mancuso APRN) Asthma Social History (Updated 07/05/22 @ 13:41 by Mireya Montano RN) Smoking Status: Never smoker second hand exposure: Yes alcohol intake: never substance use type: denies use current occupational status: other Travel in the last 8 weeks: None household members: family housing: house 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 current occupational exposures/hazards: No caffeine: Yes ROS Obtained: Yes All systems reviewed & no additional complaints except as documented and Yes Systems reviewed as appropriate & no additional complaints except as documented Constitutional Constitutional: Reports system reviewed and no additional complaints, except as documented, Reports as per HPI, Reports fever(s) and Reports headache(s) ENT Ears, Nose, Mouth, and Throat: Reports system reviewed and no additional complaints, except as documented, Reports headache(s), Reports nasal congestion and Reports nasal discharge Cardiovascular Cardiovascular: Reports system reviewed and no additional complaints, except as documented and Reports as per HPI Respiratory Respiratory: Reports system reviewed and no
[2022-07-05 14:15] VITALS: BP 124/77; PULSE 81; RESP 19; TEMP 36.8; O2SAT 99
== END 2022-07-05 14:20 | disposition home or self-care (01) ==
PROVIDERS: Emergency Provider Nurse Practitioner; PCP Family Medicine
DX: U07.1 COVID-19 (principal)
CPT/HCPCS: 99212; C9803; G0463; U0003; U0005

== ENCOUNTER 2024-09-17 09:54 | Emergency (ER) | payer SELFPAY ==
[2024-09-17 09:56] VITALS: BP 133/76; PULSE 72; RESP 18; TEMP 37; O2SAT 96; BMI 35.2
--- NOTE | 2024-09-17 10:18 | CT_ITS ---
FINAL REPORT TECHNIQUE: Pre-and postcontrast images of the abdomen through the pelvis were performed by computed tomography. Extensive 3-D reconstruction images were performed. A CTA was performed. This study was performed with techniques to keep radiation doses as low as reasonably achievable (ALARA). Individualized dose reduction techniques using automated exposure control or adjustment of mA and/or kV according to the patient's size were employed. CLINICAL HISTORY: fall, periumbilical and R hemiabdominal pain COMPARISON: None FINDINGS: ABDOMEN: The lung bases are clear. Precontrast images demonstrate no evidence of nephrolithiasis. No adrenal masses are identified. There is fatty infiltration of the liver. The spleen and pancreas are unremarkable. PELVIS: The appendix is normal. There is a small umbilical hernia containing fat. The urinary bladder is unremarkable. There is no significant free fluid or adenopathy. The bony pelvis is unremarkable. Bilateral L5 pars defects are present. CTA: The abdominal aorta is proper caliber. The SMA, celiac axis, and RONALD are patent. There is no significant stenosis or calcification. The renal arteries are patent bilaterally. The iliac arteries are patent bilaterally. IMPRESSION: No evidence of aneurysm or significant stenosis. No acute inflammatory process. Reviewed, Interpreted and Dictated by Victoriano Vitale III, MD Transcribed by Shanna Villegas Authenticated and [facility]
--- NOTE | 2024-09-17 10:20 | ED_ITS ---
Discharge Plan Disposition Patient Disposition: Home, Self-Care Chief Complaint: Abdominal Pain Prescriptions Prescriptions: No Action amoxicillin 500 MG capsule 500 mg PO TID Qty: 30 0RF Referrals Follow up/Referrals: Kristine Jovel MD [Primary Care Provider] - See instructions Activity Restrictions/Add. Instructions Additional Instructions/Restrictions: At this time it was felt you are safe to be discharged home. If new or worsening symptoms please do not hesitate to return the emergency department. If symptoms persist beyond a week please follow-up with your family doctor for continued evaluation. 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 by RN): PT REPORTS FALL BACKWARDS FROM TOW-TRUCK ON TUESDAY. UNKNOWN LOC. REPORTS LANDING ON BACK THEN ON HIS KNEES. C/O LOWER ABDOMINAL/UMBILICAL PAIN. DENIES FEVER OR CHILLS. NO N/V. NORMAL BM THIS AM AROUND 0730 History of Present Illness HPI narrative: Patient is a 28-year-old male with no pertinent past medical history of previous remote lumbar fracture with chronic back pain however no functional residual deficits who presents emergency department for evaluation traumatic injury sustained in a fall. On Tuesday patient fell 4 feet onto his back, did not fully knock himself out. Since then he has had persistent periumbilical and right hemiabdominal pain, no vomiting, no dysuria. His back pain is at his baseline. No other acute complaints at this time. Related Data Previous Rx's ?Medication ?Instructions ?Recorded amoxicillin 500 mg capsule 500 mg PO TID #30 caps 05/17/21 Allergies Allergy/AdvReac Type Severity Reaction Status Date / Time No Known Allergies Allergy Verified 08/12/20 09:35 [facility] Disclaimer: The information contained in this section may have been updated after the patient was seen, as this information can be updated by other users. 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 current occupational exposures/hazards: No caffeine: Yes Other Medical History Have you received the Flu Vaccine for this season: No Have you received the Pneumonia Vaccine: No ROS Obtained: Yes Systems reviewed as appropriate & no additional complaints except as documented Physical Exam General General appearance: alert and in no apparent distress Head Head exam: atraumatic and normocephalic Eye Eye exam: Present PERRL and EOMI ENT ENT exam: Present mucous membranes moist Neck Neck exam: Present normal inspection Chest Chest inspection: Present normal inspection and symmetric chest wall rise Respiratory Respiratory exam: Present normal lung sounds bilaterally; Absent respiratory distress Cardiovascular Cardiovascular exam: Present regular rate and normal rhythm Abdominal Exam Abdominal exam: Present soft and tenderness (Right upper and right lower quadrant); Absent guarding or rebound Extremities Exam Extremities exam: Present normal inspection; Absent tenderness Back Exam Back exam: Present normal inspection; Absent tenderness Neurological Exam Neurological exam: Present alert and CN II-XII intact; Absent motor sensory deficit Psychiatric Psychiatric exam: Present normal affect Skin Skin exam: Present warm and dry Medical Decision Making Medical Records Screening: Per USPSTF and CDC recommendations, given the prevalence of disease in our region, it is our hospital?s policy to screen for HIV and viral Hepatitis for all patients aged 18 and over and those with ongoing risk factors. [place] Inquiry Pt receiving controlled substance: No Vital Signs: 09/17/24 09:56 09/17/24 10:58 09/17/24 11:00 Temperature 98.6 F Temperature Source Oral Pulse Rate 61 57 L Pulse Rate [Radial] 72 Respiratory Rate 18 Blood Pressure 114/49 L 104/60 L Blood Pressure [Right Arm] 133/76 Blood Pressure Mean Blood Pressure Mean [Right Arm] 95 Blood Pressure Source [Right Arm] Automatic Cuff Blood Pressure Position [Right Arm] Sitting 02 Sat by Pulse Oximetry 96 95 97 Oxygen Delivery Method Room Air Room Air Room Air 09/17/24 11:30 09/17/24 12:00 Temperature Temperature Source Pulse Rate 62 57 L Pulse Rate [Radial] Respiratory Rate Blood Pressure 103/55 L 125/58 L Blood Pressure [Right Arm] Blood Pressure Mean 67 75 Blood Pressure Mean [Right Arm] Blood Pressure Source [Right Arm] Blood Pressure Position [Right Arm] 02 Sat by Pulse Oximetry 95 96 Oxygen Delivery Method Room Air Lab Data Lab Results 09/17/24 10:10: WBC 6.0, RBC 5.26, Hgb 16.9, Hct 47.9, MCV 91.1, MCH 32.1 H, MCHC 35.3, RDW 12.9, Plt Count 251, MPV 8.3, Neut % (Auto) 63.9, Lymph % (Auto) 27.7, [place] % (Auto) 6.0, Eos % (Auto) 1.2, Baso % (Auto) 1.2, Neut # (Auto) 3.8, Lymph # (Auto) 1.7, [place] # (Auto) 0.4, Eos # (Auto) 0.1, Baso # (Auto) 0.1, Sodium 139, Potassium 4.0, Chloride 106, Carbon Dioxide 25, Anion Gap 12.0, BUN 10, Creatinine 1.00, Estimated Creat Clear 171, Estimated GFR 88, Est GFR ( Amer) 107, Glucose 129 H, Calcium 9.2, Total Bilirubin 0.8, AST 46, ALT 92 H, Alkaline Phosphatase 66, Total Protein 7.3, Albumin 4.4, Globulin 2.9, Albumin/Globulin Ratio 1.5, HIV 1&2 Antibody Rapid Nonreactive 09/17/24 10:18: Urine Color Yellow, Urine Appearance Clear, Urine pH 8.0, Ur Specific [place] 1.015, Urine Protein Negative, Urine Glucose (UA) Negative, Urine Ketones Negative, Urine Blood Negative, Urine Nitrate Negative, Urine Bilirubin Negative, Urine Urobilinogen 0.2, Ur Leukocyte Esterase Negative, Urine RBC None, Urine WBC Occasional, Ur Squamous Epith Cells Occasional, Urine Bacteria Trace 09/17/24 10:10 09/17/24 10:10 Orders (Tests/Meds): ED MEDICATIONS Discontinued Medications Generic Name Dose Route Start Last Admin Trade Name Freq PRN Reason Stop Dose Admin Acetaminophen 1,000 mg 09/17/24 10:18 09/17/24 11:23 Acetaminophen 1,000mg/100ml Vial IV 09/17/24 10:19 1,000 mg ONCE ONE Administration Iopamidol 80 ml 09/17/24 10:31 09/17/24 10:32 Iopamidol-370 (76%);100ml Bottle IV 09/17/24 10:32 80 ml ONCE ONE Administration Methocarbamol 1,000 mg 09/17/24 10:19 09/17/24 11:23 Methocarbamol 500mg Tablet PO 09/17/24 10:20 1,000 mg ONCE ONE Administration Morphine Sulfate 4 mg 09/17/24 10:18 09/17/24 11:23 Morphine 4mg/Ml Syringe IV 09/17/24 10:19 4 mg ONCE ONE Administration Ondansetron HCl 4 mg 09/17/24 10:18 09/17/24 11:23 Ondansetron 4mg/2ml Vial IV 09/17/24 10:19 4 mg ONCE ONE Administration Sodium Chloride 10 ml 09/17/24 10:31 09/17/24 10:32 Sodium Chloride 0.9% 10ml Syr (Rad Only) IV 09/17/24 10:32 10 ml ONCE ONE Administration Sodium Chloride 50 ml 09/17/24 10:31 09/17/24 10:32 0.9 % Sodium Chloride 50 Ml Vial IV 09/17/24 10:32 50 ml ONCE ONE Administration ORDERS Category Date Time Status CT angio abdomen pelvis Stat Cat Scan 09/17/24 10:18 Completed CBC w/Auto Diff [Complete Blood Count Auto Diff] Stat Lab 09/17/24 10:10 Completed CMP [Comprehensive Metabolic Panel] Stat Lab 09/17/24 10:10 Completed HIV (1&2) Antibody Rapid Stat Lab 09/17/24 10:10 Completed Hep C Ab with Reflex to RNA Stat Lab 09/17/24 10:10 Received UA [Urinalysis and Microscopic] Stat Lab 09/17/24 10:18 Completed Medical Decision Narrative: In summary patient is a 28-year-old male past medical history described above who presents emergency department for evaluation of traumatic injury sustained in a fall. Patient is hemodynamically stable nontoxic-appearing upon arrival, afebrile. Cervical spine cleared clinically per [place] guidelines, intracranial imaging considered but will be deferred given that [place] head CT rule renders CT unnecessary and patient has a nonfocal neurologic exam. Differential includes intra-abdominal hemorrhage, musculoskeletal strain, among others. Workup be conducted with hematologic labs, CTA abdomen and pelvis, urinalysis. Initial interventions include multimodal pain control. Workup reviewed by me, hematologic labs are nonactionable, no leukocytosis, no MAURICE or critical electrolyte abnormality, urinalysis interpreted by me and not consistent with infection. CTA abdomen pelvis shows no acute process. Upon repeat evaluation patient is resting in bed, remained hemodynamically stable throughout my evaluation is appropriate for outpatient management at this time. Critical Care Critical Care Time Critical Care Time: No
[2024-09-17 10:29] LABS: Basophils # 0.1 K/mm3 (0-0.2); Basophils % 1.2 % (0.1-2.0); Eosinophils # 0.1 K/mm3 (0.0-0.4); Eosinophils % 1.2 % (0.1-12.0); Hematocrit 47.9 % (42.0-52.0); Hemoglobin 16.9 g/dL (14.1-18.0); Lymphocytes # 1.7 K/mm3 (0.7-4.5); Lymphocytes % 27.7 % (10-50); Mean Corpuscular HGB Conc 35.3 g/dL (31.8-35.4); Mean Corpuscular Hemoglobin 32.1 pg (27.0-31.2); Mean Corpuscular Volume 91.1 fl (80-94); Mean Platelet Volume 8.3 fl (7.4-10.4); Monocytes # 0.4 K/mm3 (0.1-1.0); Neutrophils # 3.8 K/mm3 (1.8-7.8); Neutrophils % 63.9 % (37.0-80.0); Platelet Count 251 K/mm3 (142-424); Red Blood Count 5.26 M/mm3 (4.60-6.20); Red Cell Distribution Width 12.9 % (11.5-17.5)
[2024-09-17 10:32] LABS: Albumin Level 4.4 g/dl (3.5-5.0); Chloride 106 mmol/L (98-107); Sodium 139 mmol/L (136-145)
[2024-09-17] MEDS: 0.9 % SODIUM CHLORIDE 50 ML VIAL IV (10:32)
[2024-09-17] MEDS: SODIUM CHLORIDE 0.9% 10ML SYR (RAD ONLY) 10 ML IV (10:32)
[2024-09-17] MEDS: IOPAMIDOL-370 (76%);100ML BOTTLE 80 ML IV (10:32)
[2024-09-17 10:35] LABS: Alanine Aminotransferase 92 U/L (12-78); Albumin/Globulin Ratio 1.5 (1.1-1.8); Alkaline Phosphatase 66 U/L (38-126); Aspartate Amino Transferase 46 U/L (17-59); Bilirubin,Total 0.8 mg/dl (0.2-1.3); Blood Urea Nitrogen 10 mg/dl (9-20); Calcium 9.2 mg/dl (8.4-10.2); Carbon Dioxide 25 mmol/L (22.0-30.0); Creatinine Clearance Estimated 171 mL/min (50-200); Estimated Glomerular Filt Rate 88 ml/min (>60); GFR (African American) 107 ML/MIN (>60); Globulin 2.9 g/dL (1.3-3.2); Glucose 129 mg/dl (74-100); Total Protein,Serum 7.3 g/dl (6.3-8.2)
[2024-09-17 10:58] VITALS: BP 114/49; PULSE 61; O2SAT 95
[2024-09-17 11:00] VITALS: BP 104/60; PULSE 57; O2SAT 97
[2024-09-17 11:02] LABS: Microscopic, Urine URINE MICROSCOPIC (MICROSCOPIC)
[2024-09-17 11:20] LABS: HIV (1&2) Antibody Rapid NONREACTIVE (NONREACTIVE)
[2024-09-17] MEDS: MORPHINE 4MG/ML SYRINGE 4 MG IV (11:23)
[2024-09-17] MEDS: METHOCARBAMOL 500MG TABLET 1000 MG PO (11:23)
[2024-09-17] MEDS: ACETAMINOPHEN 1,000MG/100ML VIAL 1000 MG IV (11:23)
[2024-09-17] MEDS: ONDANSETRON 4MG/2ML VIAL 4 MG IV (11:23)
[2024-09-17 11:30] VITALS: BP 103/55; PULSE 62; O2SAT 95
[2024-09-17 11:40] LABS: Appearance,Urine CLEAR (Clear); Bilirubin,Urine Negative (Negative); Blood, Urine Negative (Negative); Color,Urine YELLOW (Yellow); Glucose,Urine (UA) Negative (Negative); Ketones,Urine Negative (Negative); Leukocyte Esterase,Urine Negative (Negative); Nitrate,Urine Negative (Negative); Protein,Urine Negative (Negative); Specific Gravity, Urine 1.015 (1.005-1.030); Urobilinogen,Urine 0.2 EU/dl (0.2)
[2024-09-17 12:00] VITALS: BP 125/58; PULSE 57; O2SAT 96
[2024-09-17 12:04] LABS: Bacteria,Urine Trace /lpf; Squamous Epithelial Cell,Urine Occasional #/hpf (0-5); WBC,Urine Occasional #/hpf (0-3)
[2024-09-17 12:57] VITALS: BP 125/58; PULSE 97; RESP 18; TEMP 37; O2SAT 97
[2024-09-18 09:22] LABS: HCV Ab Non Reactive (Non Reactive)
== END 2024-09-17 13:00 | disposition home or self-care (01) ==
PROVIDERS: Emergency Provider Emergency Medicine; PCP Family Medicine
DX: R10.30 Lower abdominal pain, unspecified (principal); M54.9 Dorsalgia, unspecified; W17.89XA Other fall from one level to another, initial encounter; Y93.89 Activity, other specified; Y92.9 Unspecified place or not applicable
CPT/HCPCS: 74174; 80053; 81001; 85025; 86803; 87389; 96374; 96375; 99285; J0131; J2270; J2405; Q9967